=== PATIENT | male | born 1970 | race Caucasian/White ===

== ENCOUNTER → 2016-04-24 | Outpatient (CLI) | payer OTHER | LOC: FIMAGING 11:07 | PROVIDERS: ATTEND Neurological Surgery | PROC: CP1 Nuclear Medicine, Musculoskeletal System, Planar Nuclear Medicine Imaging (ICD-10-PCS; principal; 2016-04-24) | DX: M16.12 Unilateral primary osteoarthritis, left hip (principal) | CPT/HCPCS: 78300; A9503 ==

== ENCOUNTER → 2016-04-26 | Outpatient (CLI) | payer OTHER | LOC: FIMAGING 15:28 | PROVIDERS: ATTEND Physician Assistant Surgical | DX: Z98.890 Other specified postprocedural states (principal); Z98.1 Arthrodesis status; M16.12 Unilateral primary osteoarthritis, left hip ==

== ENCOUNTER 2016-08-29 10:35 | Inpatient (IN) | payer OTHER ==
[~2016-08-29 10:35] MED LIST: ACETAMINOPHEN 325 MG TAB PO ONE; DEXAMETHASONE 4 MG/ML VIAL IVP ONE; FAMOTIDINE 20 MG TAB PO ONE; POVIDONE-IODINE 20 ML in SODIUM CL IRRIG SOLUTION 500 ML IRR ONE; ROPIVACAINE 0.2% 80 MG, EPINEPHrine 0.2 MG, KETOROLAC TROMETHAMINE 30 MG in BAG 0 ML IU ONE; TRANEXAMIC ACID 2,000 MG in NS 100 ML IV ONE; ceFAZolin 1 GM/5 ML SYR ONE; ceFAZolin 2 GM/DEXTROSE 100 ML IV ONE
[2016-08-29] MEDS ORDERED: ACETAMINOPHEN 325 MG TAB ONE (11:09)
[2016-08-29] MEDS ORDERED: DEXAMETHASONE 4 MG/ML VIAL ONE (11:09)
--- NOTE | 2016-08-29 11:09 | PDHPUP ---
History & Physical Update H&P update statement: This history and physical update is based on an assessment of the patient which was completed after admission or registration (within 24 hours), but prior to the surgery/procedure. H&P update: H&P reviewed & patient examined, no change in patient's condition since H&P completed
[2016-08-29] MEDS ORDERED: CEFAZOLIN 2 GM/DEXTROSE/100 ML BAG IV ONE (11:10)
[2016-08-29] MEDS ORDERED: FAMOTIDINE 20 MG TAB ONE (11:10)
[2016-08-29] MEDS ORDERED: MIDAZOLAM 2 MG/2 ML VIAL IVP ONE (11:25)
--- NOTE | 2016-08-29 11:27 | PDANEPAE ---
ANE Past Medical History - Cardiovascular History Hx Hypertension: No Hx Arrhythmias: No Hx Chest Pain: No Hx Coronary Artery / Peripheral Vascular Disease: No Hx CHF / Valvular Disease: No Hx Palpitations: No Cardiovascular History Comment: borderline htn- no medications - Pulmonary History Hx COPD: No Hx Asthma/Reactive Airway Disease: No Hx Recent Upper Respiratory Infection: No Hx Oxygen in Use at Home: No Hx Sleep Apnea: No Sleep Apnea Screening Result - Last Documented: Negative - Neurologic History Hx Cerebrovascular Accident: No Hx Seizures: No Hx Dementia: No Neurologic History Comment: hx of back fusion last year - Endocrine History Hx Diabetes: No Hypothyroid: No Hyperthyroid: No Obesity: no - Renal History Hx Renal Disorders: No - Liver History Hx Hepatic Disorders: No - Neurological & Psychiatric Hx Hx Neurological and Psychiatric Disorders: Yes Neurological / Psychiatric History Comment: 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 l4-5 fusion back surgery x2 2016 ANE Review of Systems - Exercise capacity METS (RN): 4 METS - Systems Muscolosketal: Reports: back pain, joint pain Neurological: Reports: paresthesia ANE Patient History - Allergies Allergies/Adverse Reactions: No Known Allergies Allergy (Unverified 08/17/16 11:42) - Home Medications Home Medications: NK [No Known Home Meds] 08/17/16 [Last Taken Unknown] - NPO status NPO Since - Liquids (Date): 08/29/16 NPO Since - Liquids (Time): 09:00 NPO Since - Solids (Date): 08/28/16 NPO Since - Solids (Time): 00:00 - Anes Hx Anes Hx: no prior problems - Smoking Hx Smoking Status: Former smoker - Alcohol Use Alcohol Use: Occasionally - Family Anes Hx Family Anes Hx: neg - N/A Family Hx Anesthesia Complications: none ANE Labs/Vital Signs - Vital Signs Blood Pressure: 173/105 Heart Rate: 76 Respiratory Rate: 16 O2 Sat (%): 96 Height: 180.34 cm Weight: 104.326 kg ANE Physical Exam - Airway Neck exam: FROM Mallampati Score: Class 2 Mouth exam: normal dental/mouth exam - Pulmonary Pulmonary: no respiratory distress, no rales or rhonchi, clear to auscultation - Cardiovascular Cardiovascular: regular rate and rhythym - ASA Status ASA Status: II ANE Anesthesia Plan Anesthesia Plan: MAC, spinal
[2016-08-29] MEDS ORDERED: fentaNYL 100 MCG/2 ML INJ ONE (11:50)
[2016-08-29] MEDS ORDERED: PROPOFOL/EMULSION 500 MG/50 ML BOTTLE IV ONE ×2 (11:52→13:05)
[2016-08-29] MEDS ORDERED: LIDOCAINE 2% 5 ML SDV ONE ×2 (11:55)
[2016-08-29] MEDS ORDERED: NALOXONE HCL 0.4 MG/ML INJ IVP PRN (12:37)
[2016-08-29] MEDS ORDERED: HYDROCODONE/APAP 5/325 TAB PO PRN (12:37)
[2016-08-29] MEDS ORDERED: ACETAMINOPHEN 500 MG TAB PO PRN (12:37)
[2016-08-29] MEDS ORDERED: D5W LR 500 ML IV PRN (12:37)
[2016-08-29] MEDS ORDERED: ONDANSETRON 4 MG/2 ML VIAL IVP PRN ×2 (12:37→14:23)
[2016-08-29] MEDS ORDERED: REMIFENTANIL HCL 1 MG VIAL ONE (13:29)
[2016-08-29] MEDS ORDERED: PROPOFOL 200 MG/20 ML VIAL ONE (13:32)
[2016-08-29] MEDS ORDERED: KETOROLAC 30 MG/1 ML SDV ONE (14:01)
--- NOTE | 2016-08-29 14:13 | POSTOPPROG ---
Post Op Note Date of Operation: 08/29/16 Surgeon: Vj Moctezuma Service Inspector: Tone Greene/Sidney Ross Anesthesiologist: Edwardo Mota Anesthesia: IV Sedation, Spinal Post-op Diagnosis: Left hip severe degenerative arthritis. Procedure: Left total hip arthroplasty Inf/Abcess present in the surg proc area at time of surgery?: No EBL: 100-500
[2016-08-29] MEDS ORDERED: PROMETHAZINE HCL 25 MG/ML INJ IVP PRN (14:23)
[2016-08-29] MEDS ORDERED: BISACODYL 10 MG SUPP PR PRN (14:23)
[2016-08-29] MEDS ORDERED: ONDANSETRON DISINTEGRATING 4 MG TAB PO PRN (14:23)
[2016-08-29] MEDS ORDERED: CYCLOBENZAPRINE 10 MG TAB PO PRN (14:23)
[2016-08-29] MEDS ORDERED: NS 500 ML IV PRN (14:23)
[2016-08-29] MEDS ORDERED: POLYETHYLENE GLYCOL 3350 17 GM PKT PO PRN (14:23)
[2016-08-29] MEDS ORDERED: TEMAZEPAM 15 MG CAP PO PRN (14:23)
[2016-08-29] MEDS ORDERED: PHARMACY PAIN CONSULT 1 EA MISC PRN (14:23)
[2016-08-29] MEDS ORDERED: METOCLOPRAMIDE 10 MG/2 ML VIAL IVP PRN (14:23)
[2016-08-29] MEDS ORDERED: MAGNESIUM HYDROXIDE 30 ML UDCUP PO PRN (14:23)
[2016-08-29] MEDS ORDERED: PROMETHAZINE HCL 25 MG SUPPR PR PRN (14:23)
[2016-08-29] MEDS ORDERED: DIPHENOXYLATE/ATROPINE LOMOTIL 1 TAB PO PRN (14:23)
[2016-08-29] MEDS ORDERED: traMADol 50 MG TAB PO PRN (14:23)
[2016-08-29] MEDS ORDERED: diphenhydrAMINE 25 MG CAP PO PRN (14:23)
[2016-08-29] MEDS ORDERED: LACTULOSE 20 GM/30 ML UDCUP PO PRN (14:23)
[2016-08-29] MEDS ORDERED: LR 1,000 ML IV SCH (14:30)
--- NOTE | 2016-08-29 14:44 | POSTANESTH ---
Post Anesthetic Evaluation Cardiovascular Status: Normal, Stable Respiratory Status: Normal, Stable Level of Consciousness/Mental Status: Can Participate in Eval Pain Control: Adequate, Prn Tx Ordered Nausea/Vomiting Control: Adequate, Prn Tx Ordered Complications Possibly Related to Anesthesia: None Noted
--- NOTE | 2016-08-29 15:18 | GOP ---
[f rep st] OPERATIVE REPORT DATE OF OPERATION: 08/29/2016 SURGEON: Vj Moctezuma MD DAIRY MACHINE OPERATOR FARMWORKER: Tone Greene and Sidney Ross. ANESTHESIA: A combination of Marcaine, spinal, and IV sedation. ANESTHESIOLOGIST: Dr. Edwardo Mota. PREOPERATIVE DIAGNOSIS: Left hip severe degenerative arthritis. POSTOPERATIVE DIAGNOSIS: Left hip severe degenerative arthritis. PROCEDURE PERFORMED: Left total hip arthroplasty, Oxinium femoral head on highly cross-linked polye thylene cup liner. FINDINGS: ESTIMATED BLOOD LOSS: About 500 mL. COUNTS: The sponge and needle count were correct on 2 occasions. I used a [employer]hew R3 hemispherical solid-backed acetabular shell with an outside diameter of 56 mm. The liner was a [employer]don [employer]hew R3 0 degree highly cross-linked liner with an inside diame ter of 36 mm. The femoral component was a standard offset Ardon [employer] Nephew Synergy stem in a size 1 5 and press-fit. The femoral head was a [employer] Nephew Oxinium head with a 0 neck length and a 36 mm outside diameter. Tone Greene and Sidney Ross acted as surgical assistants. Their assistance was a medical nain mix in order to carry out the procedure safely. DESCRIPTION OF PROCEDURE: The patient was given 2 g of IV Ancef preoperatively within 60 minutes of surgery. He also received IV tranexamic acid at a dose of 20 mg/kg. He was placed on the operatin g room table and given spinal anesthesia with Marcaine by Dr. Mota. He was then placed supin e and given IV sedation. A Fuller catheter was not used. A TOM stocking and SCD were placed on his nonoperative leg. He was rolled to the right lateral decubitus position. The position was secured with the pegboard table attachment. An axillary roll was used, and all pressure points were careful ly padded. I was careful to lock his pelvis in a vertical position. His perineum was isolated with plastic adhesive drapes. The left hip and left lower extremity were prepped with ChloraPrep. They were draped free using sterile sheets, stockinette, and Ioban plastic drapes. The [employer] anization time-out was performed to verify the correct surgical side and the correct patient identit y. The Moffat time-out was also performed. I made a 5-inch straight oblique posterolateral hip skin incision. Subcutaneous tissues were sharpl y divided and hemostasis was obtained using electrocautery. The fascia evan was identified and spli t along the axis of its fibers. I then curved posteriorly and proximally, and split the fascia of t he gluteus krystle and bluntly split the muscle fibers in line with their orientation. The Charnley self-retaining retractor was inserted. His sciatic nerve was located, partially exposed, and prote cted throughout the procedure. The external rotators and the posterior hip capsule were divided as separate layers at the base of the femoral neck, tagged, and reflected posteriorly. A smooth 8-inch Steinmann pin was inserted vertically into the ilium superior to the acetabulum. A 1/8-inch drill bit was inserted vertically into the greater trochanter and parallel to the first pin. The distance between the 2 was measured for leg length reference. His femoral head was dislocated posteriorly. Severe degenerative changes were present on the femoral head. His femoral neck was osteotomized at the appropriate level and inclination. I was careful to preserve all the posterior capsule and mos t of the anterior capsule. The remnant of his damaged labrum was excised. The femur was prepared first. This allowed me to route specialist the amount of natural femoral neck anteversi on. This, in turn, allowed me to later determine the correct amount of cup anteversion. He had ricki roximately 15 degrees of natural femoral neck anteversion. The canal was opened laterally with a jaime x chisel. I reamed and broached sequentially up to size 15. I used a size 15 broach as a trial dannielle m. I was careful to lateralize adequately. Appropriate retractors were inserted to expose the acet abulum. The acetabulum was reamed sequentially to 55 mm. I selected a 56 mm Ardon and Nephew R3 so lid backed hemispherical shell. This was tapped securely into place in the proper degree of inclina tion anteversion. I used the remnant of his transverse acetabular ligament and other acetabular bon y landmarks to help me properly orient the cup. Supplemental screw fixation was not necessary. I i nserted a screw-in metal dome hole plug. He had large posterior inferior osteophytes, which I remov ed with an osteotome and rongeur. He also had very large anterior inferior acetabular osteophytes, which were similarly removed. I performed a series of trial reductions to determine length and stability. I took an intraoperativ e cross-table AP x-ray to help me route specialist leg length. I concluded that the size 15 stem with a 0 neck length, a 36 mm head and a 0 degree trial liner, gave me the proper combination of appropriate claudio th and good anterior and posterior stability. Based on the intraoperative film, I did use the later alizing reamer to make sure the stem was inserted without any varus. The 0 degree Ardon [employer] Nephew R3 highly cross-linked polyethylene liner was inserted and tapped secu rely into place. The Ardon [employer] Nephew Synergy stem in size 15 with standard offset was inserted pre ss-fit and was very tight. I did one final trial reduction and confirmed that the 0 neck length wit h a 36 mm head was the proper combination. The Ardon [employer] Nephew Oxinium head with an outside diamet er of 36 mm and a neck length of 0 mm was tapped securely onto the clean trunnion. The acetabulum w as irrigated, cleaned, and the hip was reduced one final time. He had excellent anterior and seismograph operator ior stability and appropriate length. 40 mL of the joint anesthetic cocktail was injected into the capsule, the deep musculature, and the subcutaneous tissues around the skin edges. The joint was thoroughly irrigated one final time with a dilute Betadine solution. His sciatic nerve was reinspected and looked unharmed. The external ro tators and the posterior hip capsule were repaired in separate layers with #2 FiberWire sutures thro ugh drill holes in the greater trochanter. This provided a strong posterior capsular and external r otator repair. The fascia evan was closed first with several [id number] #2 FiberWire sutures f ollowed by a running #2 barbed Ethicon Stratafix PDO suture. The subcutaneous tissues were closed w ith a running 0 barbed Ethicon Stratafix Monoderm suture. The skin was closed with a running 3-0 ba rbed Ethicon Stratafix Monoderm subcuticular suture. The skin edges were reapproximated and sealed with Dermabond glue. The wound was covered with a strip of Telfa and everything was held in place w ith a piece of clear plastic Tegaderm. A long-leg TOM stocking and SCD were applied to his left low er extremity. He wore a stocking and SCD on the opposite leg during the procedure. An abduction pi llow was placed between his knees. He was awakened from anesthesia and rolled to the supine positio n on his [facility]. He was taken to the PACU in satisfactory condition. There were no recogn ized intraoperative complications. Copy requested to: DAMIR PENN /[id number]/MODL
[2016-08-29] MEDS: oxyCODONE IR 5 MG TAB PO PRN ×3 (15:51→20:45)
[2016-08-29] MEDS: KETOROLAC 30 MG/1 ML SDV IVP PRN ×2 (15:51→20:44)
[2016-08-29] MEDS: ACETAMINOPHEN 325 MG TAB PO SCH (17:41)
[2016-08-29] MEDS: SENNOSIDES/DOCUSATE SODIUM TAB PO SCH (20:07)
[2016-08-29] MEDS: FAMOTIDINE 20 MG TAB PO SCH (20:07)
[2016-08-29] MEDS: ceFAZolin 2 GM/DEXTROSE 100 ML IV SCH (20:08)
[2016-08-29] MEDS: ASPIRIN 325 MG TAB PO SCH (20:43)
[2016-08-29 23:28] VITALS: RESP 17
[2016-08-30] MEDS: ACETAMINOPHEN 325 MG TAB PO SCH ×2 (00:24→05:12)
[2016-08-30 04:52] VITALS: BP 121/81; TEMP 98.6; O2SAT 98
[2016-08-30] MEDS: oxyCODONE IR 5 MG TAB PO PRN ×3 (05:13→11:38)
[2016-08-30] MEDS: ceFAZolin 2 GM/DEXTROSE 100 ML IV SCH (05:14)
[2016-08-30 05:23] LABS: HEMATOCRIT 38.1 % (40.0-51.0)
[2016-08-30 08:15] VITALS: PULSE 62
[2016-08-30] MEDS: SENNOSIDES/DOCUSATE SODIUM TAB PO SCH (08:31)
[2016-08-30] MEDS: ASPIRIN 325 MG TAB PO SCH (08:31)
[2016-08-30] MEDS: FAMOTIDINE 20 MG TAB PO SCH (08:31)
[2016-08-30] MEDS ORDERED: FERROUS SULFATE 140 MG TAB.ER PO SCH (09:00)
--- NOTE | 2016-08-30 09:37 | SOAPPROG ---
SOAP Progress Note Assessment/Plan: Assessment: Afebrile. Awake and alert. He has been walking in the [place]. His dressing is dry. Sciatic nerve intact. H&H is good. His postoperative films look excellent. Plan: Physical therapy today and discharge later today. 08/30/16 09:36 Objective: Vital Signs Temp Pulse Resp BP Pulse Ox 37.0 C 62 17 121/81 H 98 08/30/16 04:00 08/30/16 08:00 08/30/16 08:00 08/30/16 04:00 08/30/16 08:00 Laboratory Results 08/30/16 04:46 08/29/16 08/30/16 08/31/16 05:59 05:59 05:59 Intake Total 4075 Output Total 350 Balance 3725 ICD10 Worksheet Patient Problems: Problems Problem Status Onset Osteoarthritis of left hip Acute
--- NOTE | 2016-08-30 15:01 | GDS ---
[f rep st] DISCHARGE SUMMARY ADMITTING DIAGNOSES: Left hip severe degenerative arthritis. DISCHARGE DIAGNOSIS: Left hip severe degenerative arthritis. OPERATIONS PERFORMED: On 08/29/2016, a left total hip arthroplasty. POSTOPERATIVE COMPLICATIONS: None. CONDITION ON DISCHARGE: Improved. DESCRIPTION OF HOSPITAL COURSE: The patient was admitted to the hospital on the morning of surgery. His hemoglobin, electrolytes and BUN and creatinine on June 07, 2016 were normal. The same day, under a combination of Marcaine, spinal anesthesia and IV sedation, he underwent a left total hip arthroplasty. Postoperatively, he was treated with multimodal DVT prophylaxis, including aspirin. On the first postoperative day, his hemoglobin and hematocrit were 13.0 and 38.1. He was seen by Physical Therapy and made excellent progress with ambulation and stairs. By the time of discharge, he was afebrile, his wound was clean and dry, and he was independent walking with a walker. DISPOSITION: The patient is discharged to his home. DISCHARGE INSTRUCTIONS: He will go to outpatient physical therapy in [place], [place]. Continue aspirin 325 mg p.o. daily for 21 days. He may progress to full weightbearing on the left as tolerated. Use an abduction pillow in bed for 3 weeks. Use TOM stockings for 1 week. He has prescriptions for oxycodone and tramadol for pain control. I will see him back in the office on September 18, 2016. If there are any problems, he is to call me at the office. Copy requested to: Dr. Gonzalo [place], [place] /[id number]/MODL MTDD
== END 2016-08-30 11:44 | disposition home or self-care (01) | DRG 470 ==
LOC: F3N 10:35
PROVIDERS: ADMIT Orthopaedic Surgery; ATTEND Orthopaedic Surgery
PROC: 0SRB02A Replacement of Left Hip Joint with Metal on Polyethylene Synthetic Substitute, Uncemented, Open Approach (ICD-10-PCS; principal; 2016-08-29 12:00)
DX: M16.12 Unilateral primary osteoarthritis, left hip (principal); M54.9 Dorsalgia, unspecified; Z87.891 Personal history of nicotine dependence; Z98.1 Arthrodesis status
CPT/HCPCS: 97161-GP; 97165-GO; J0171; J0690; J1100; J1885; J2250; J2704; J2795; J3010

== ENCOUNTER 2016-12-19 07:15 | Inpatient (IN) | payer OTHER ==
[~2016-12-19 07:15] MED LIST changes: -ACETAMINOPHEN 325 MG TAB PO ONE; -DEXAMETHASONE 4 MG/ML VIAL IVP ONE; -FAMOTIDINE 20 MG TAB PO ONE; -POVIDONE-IODINE 20 ML in SODIUM CL IRRIG SOLUTION 500 ML IRR ONE; -ROPIVACAINE 0.2% 80 MG, EPINEPHrine 0.2 MG, KETOROLAC TROMETHAMINE 30 MG in BAG 0 ML IU ONE; +TRANEXAMIC ACID 1,000 MG in NS 100 ML IV ONE; -TRANEXAMIC ACID 2,000 MG in NS 100 ML IV ONE; -ceFAZolin 1 GM/5 ML SYR ONE; -ceFAZolin 2 GM/DEXTROSE 100 ML IV ONE
[2016-12-19] MEDS ORDERED: CHLORHEXIDINE GLUC HIBICLENS 118 ML BTL TP ONE (08:05)
[2016-12-19] MEDS ORDERED: THROMBIN (BOVINE) 20,000 UNIT VIAL TP ONE ×4 (08:05→14:32)
[2016-12-19] MEDS ORDERED: BUPIVACAINE 0.25% 30 ML SDV ONE (08:06)
[2016-12-19] MEDS ORDERED: BACITRACIN 50,000 UNITS/10 ML SYR IRR ONE ×5 (08:06→14:32)
[2016-12-19] MEDS ORDERED: GABAPENTIN 300 MG CAP PO ONE (08:36)
[2016-12-19] MEDS ORDERED: ceFAZolin 2 GM/SWFI 2 GM/20 ML SYR IVP ONE (08:36)
[2016-12-19] MEDS ORDERED: morphINE PF 5 MG/10 ML INJ IT ONE (08:36)
[2016-12-19] MEDS ORDERED: ACETAMINOPHEN 500 MG TAB PO ONE (08:36)
[2016-12-19] MEDS ORDERED: fentaNYL 100 MCG/2 ML INJ IT ONE (08:36)
[2016-12-19] MEDS ORDERED: LR 1,000 ML IV ONE (08:37)
[2016-12-19] MEDS ORDERED: LIDOCAINE 1% 2 ML INJ ID PRN (08:37)
--- NOTE | 2016-12-19 09:16 | PDANEPAE ---
ANE History of Present Illness Lumbar stenosis S/P Fusion Plan TLIF removal hardware ANE Past Medical History - Cardiovascular History Hx Hypertension: No Hx Arrhythmias: No Hx Chest Pain: No Hx Coronary Artery / Peripheral Vascular Disease: No Hx CHF / Valvular Disease: No Hx Palpitations: No Cardiovascular History Comment: borderline htn- no medications - Pulmonary History Hx COPD: No Hx Asthma/Reactive Airway Disease: No Hx Recent Upper Respiratory Infection: No Hx Oxygen in Use at Home: No Hx Sleep Apnea: No Sleep Apnea Screening Result - Last Documented: Negative - Neurologic History Hx Cerebrovascular Accident: No Hx Seizures: No Hx Dementia: No Neurologic History Comment: hx of back fusion last year - Endocrine History Hx Diabetes: No Hypothyroid: No Hyperthyroid: No Obesity: moderate - Renal History Hx Renal Disorders: No - Liver History Hx Hepatic Disorders: No - Neurological & Psychiatric Hx Hx Neurological and Psychiatric Disorders: Yes Neurological / Psychiatric History Comment: 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 Low back pain,radiating down L thigh and back of calf. - Cancer History Hx Cancer: No Cancer History Comment: throat lesions removed 8 yrs ago - Congenital Disorder History Hx Congenital Disorders: No - GI History Hx Gastrointestinal Disorders: No - Other Health History Other Health History: dry skin - Chronic Pain History Chronic Pain: Yes (back and left leg) - Surgical History Prior Surgeries: L total hip 08-29-16. left index finger surgery x2 2014. l4- 5 fusion back surgery x2 2016 ANE Review of Systems Review of Systems: - Exercise capacity METS (RN): 4 METS ANE Patient History - Allergies Allergies/Adverse Reactions: No Known Allergies Allergy (Verified 12/05/16 13:51) - Home Medications Home Medications: NK [No Known Home Meds] 12/05/16 [Last Taken Unknown] - NPO status NPO Since - Liquids (Date): 12/19/16 NPO Since - Liquids (Time): 00:00 NPO Since - Solids (Date): 12/18/16 NPO Since - Solids (Time): 00:00 - Smoking Hx Smoking Status: Former smoker - Family Anes Hx Family Hx Anesthesia Complications: none ANE Labs/Vital Signs - Vital Signs Blood Pressure: 150/95 Heart Rate: 88 Respiratory Rate: 16 O2 Sat (%): 95 Height: 180.34 cm Weight: 117.934 kg ANE Physical Exam - Airway Mallampati Score: Class 2 Mouth exam: normal dental/mouth exam - Pulmonary Pulmonary: no respiratory distress, no rales or rhonchi - Cardiovascular Cardiovascular: regular rate and rhythym, no murmur, rub, or gallop - ASA Status ASA Status: II ANE Anesthesia Plan Anesthesia Plan: general endotracheal anesthesia
[2016-12-19] MEDS ORDERED: MIDAZOLAM 2 MG/2 ML VIAL IVP ONE (09:19)
[2016-12-19] MEDS ORDERED: PROPOFOL/EMULSION 500 MG/50 ML BOTTLE IV ONE ×4 (09:25→14:52)
[2016-12-19] MEDS ORDERED: ROCURONIUM 50 MG/5 ML VIAL ONE (09:27)
[2016-12-19] MEDS ORDERED: GLYCOPYRROLATE 0.2 MG/1 ML VIAL ONE (09:30)
[2016-12-19] MEDS ORDERED: LIDOCAINE 2% 5 ML SDV ONE (09:34)
--- NOTE | 2016-12-19 10:02 | PDHPUP ---
History & Physical Update H&P update statement: This history and physical update is based on an assessment of the patient which was completed after admission or registration (within 24 hours), but prior to the surgery/procedure. H&P update: no change in patient's condition since H&P completed
[2016-12-19] MEDS ORDERED: CITRATE DEXTROSE SOLN 500 ML BAG ONE ×2 (10:06→13:32)
[2016-12-19] MEDS ORDERED: fentaNYL 100 MCG/2 ML INJ ONE ×9 (10:09→14:52)
[2016-12-19] MEDS ORDERED: PROPOFOL 200 MG/20 ML VIAL ONE ×2 (10:40)
[2016-12-19] MEDS ORDERED: HYDROmorphONE/DILAUDID 2 MG/ML INJ ONE ×2 (13:31→14:52)
[2016-12-19] MEDS ORDERED: ceFAZolin 1 GM VIAL ONE (13:49)
[2016-12-19] MEDS ORDERED: PETROLAT,WHT/MIN OIL/SOD CHL 3.5 GM OPHT.OINT ONE (13:50)
[2016-12-19] MEDS ORDERED: morphINE PF 5 MG/10 ML INJ ONE (14:44)
[2016-12-19] MEDS ORDERED: LABETALOL HCL 5 MG/ML 20 ML MDV ONE (15:09)
[2016-12-19] MEDS ORDERED: ONDANSETRON 4 MG/2 ML VIAL ONE ×2 (15:10)
[2016-12-19] MEDS ORDERED: ONDANSETRON 4 MG/2 ML VIAL IVP PRN ×2 (15:27→15:58)
[2016-12-19] MEDS ORDERED: fentaNYL 100 MCG/2 ML INJ IVP PRN (15:27)
[2016-12-19] MEDS ORDERED: HYDROmorphONE/DILAUDID 1 MG/ML INJ IVP PRN (15:27)
[2016-12-19] MEDS ORDERED: MEPERIDINE 25 MG/ML SYR IVP PRN (15:27)
[2016-12-19] MEDS ORDERED: PROMETHAZINE HCL 25 MG/ML INJ IVP PRN (15:27)
[2016-12-19] MEDS ORDERED: NALOXONE HCL 0.4 MG/ML INJ IVP PRN (15:27)
[2016-12-19] MEDS ORDERED: LABETALOL HCL 50 MG/10 ML SYR IVP PRN (15:27)
[2016-12-19] MEDS ORDERED: TRANEXAMIC ACID 1,000 MG in NS 100 ML IV ONE ×2 (15:33→15:45)
[2016-12-19] MEDS ORDERED: BISACODYL 10 MG SUPP PR PRN (15:58)
[2016-12-19] MEDS ORDERED: MAGNESIUM HYDROXIDE 30 ML UDCUP PO PRN (15:58)
[2016-12-19] MEDS ORDERED: LACTULOSE 20 GM/30 ML UDCUP PO PRN ×2 (15:58→16:01)
[2016-12-19] MEDS ORDERED: ONDANSETRON DISINTEGRATING 4 MG TAB PO PRN ×2 (15:58→16:01)
[2016-12-19] MEDS ORDERED: diphenhydrAMINE 25 MG CAP PO PRN ×2 (15:58→16:01)
[2016-12-19] MEDS ORDERED: HYDROmorphONE/DILAUDID 6 MG/30 ML PCA IV PRN (16:01)
[2016-12-19] MEDS ORDERED: NS W/ 20 KCl/L 1,000 ML IV SCH (16:15)
--- NOTE | 2016-12-19 16:17 | SOAPPROG ---
SOAP Progress Note Assessment/Plan: POST OP CHECK; Assessment: doing well s/p L3-S1 fusion with L3/4 and L4/5 TLIFs Plan: CPM in PACU Continue ENRIQUE to bulb suction transfer to floor per protocol 12/19/16 16:12 Subjective: sleeping, wakes to voice and follows commands. comfortable Objective: Vital Signs Temp Pulse Resp BP Pulse Ox 37.0 C 88 16 150/95 H 95 12/19/16 08:39 12/19/16 09:19 12/19/16 09:19 12/19/16 09:19 12/19/16 09:19 Vitals: BP : 104/77 HR: 97 02: 97% Face mask Neuro: A+Ox 4 WOODALL spontaneously follows commands x 4 5/5 bilateral PF/EHL, DF flexes knees bilaterally equal lecturer in marketing and bilateral arm strength 5/5 sensation = LT throughout ICD10 Worksheet Patient Problems: Problems Problem Status Onset Osteoarthritis of left hip Acute
--- NOTE | 2016-12-19 16:19 | POSTOPPROG ---
Post Op Note Date of Operation: 12/19/16 Surgeon: Troy Parker Quirk Sander: WILTON Tyler Anesthesiologist: Marry Aguila Anesthesia: GET(General Endotracheal) Pre-op Diagnosis: L3/4, 4/5 DJD/ loose hardware L5/S1 Post-op Diagnosis: same Indication: severe left leg and back pain Procedure: L4-S1 hardware removal. L3/4,4/5 TLIF. L3-S1 fusion Findings: severe stenosis Inf/Abcess present in the surg proc area at time of surgery?: No EBL: Greater than 1000 Complications: none Drains: Prabhu Benson (to bulb suction)
[2016-12-19] MEDS: ceFAZolin 2 GM/DEXTROSE 100 ML IV SCH (17:57)
[2016-12-19] MEDS ORDERED: ceFAZolin 2 GM/SWFI 2 GM/20 ML SYR IVP SCH (19:00)
[2016-12-19] MEDS: oxyCODONE IR 5 MG TAB PO PRN (19:57)
[2016-12-19] MEDS ORDERED: ceFAZolin 2 GM/DEXTROSE 100 ML IV SCH (22:00)
[2016-12-19] MEDS: GABAPENTIN 300 MG CAP PO SCH (22:04)
[2016-12-19] MEDS: FAMOTIDINE 20 MG TAB PO SCH (22:04)
[2016-12-19] MEDS: morphINE SR 15 MG TAB PO SCH (22:05)
[2016-12-19] MEDS: ACETAMINOPHEN 500 MG TAB PO SCH (22:05)
[2016-12-19] MEDS: SENNOSIDES/DOCUSATE SODIUM TAB PO SCH ×2 (22:06→22:08)
--- NOTE | 2016-12-20 00:14 | GOP ---
[f rep st] OPERATIVE REPORT DATE OF OPERATION: 12/19/2016 SURGEON: Troy Parker MD ROTARY BAR OPERATOR: WILTON Cornell ANESTHESIA: General endotracheal. PREOPERATIVE DIAGNOSIS: Intractable back pain and left lower extremity radiculopathy secondary to severe spinal stenosis and lateral recess impingement at L3-4 and L4-5, status post prior L4 through S1 decompression and instrumentation and fusion with hardware failure and loose screws. Failed conservative care. Morbid obesity. High risk surgical candidate given comorbidities including morbid obesity and prior history of surgery. POSTOPERATIVE DIAGNOSIS: Intractable back pain and left lower extremity radiculopathy secondary to severe spinal stenosis and lateral recess impingement at L3-4 and L4-5, status post prior L4 through S1 decompression and instrumentation and fusion with hardware failure and loose screws. Failed conservative care. Morbid obesity. High risk surgical candidate given comorbidities including morbid obesity and prior history of surgery. PROCEDURE PERFORMED: 1. Removal of posterior segmental (pedicle screw) fixation at L4 through S1 with exploration of spinal fusion, and redo left-sided L4-5 posterior hemilaminectomy, medial facetectomy, and foraminotomy at L4-5 and L5-S1. 2. Left-sided L3-4 far lateral transpedicular decompression with L3 through S1 posterior segmental (pedicle screw) fixation and posterolateral fusion with local autograft and bone morphogenic protein. 3. L3-4 and L4-5 posterior/transforaminal lumbar interbody fusion with 2 structural PEEK interbody spacers, local autograft, and bone morphogenic protein. 4. Use of intraoperative microscopy, fluoroscopy, and computer volumetric stereotactic navigation with intraoperative neurophysiologic testing. 5. Injection of intrathecal narcotic analgesics and subcutaneous and intramuscular local anesthesia for postoperative pain control. FINDINGS: ESTIMATED BLOOD LOSS: 2 L. INDICATIONS: The patient is morbidly obese 46-year-old man, who underwent a prior multilevel decompression with stabilization and fusion at L4 through S1 with hardware failure and loose screws and a nonunion at L4-5 and adjacent level degeneration, spinal stenosis at L3-4. The patient has failed extensive conservative care and presents now for removal and replacement of hardware and revision of the fusion and interbody fusion instead of posterolateral fusion at L4-5 and extension of the decompression and fusion up to L3-4. The patient understands that there is no guarantee of a good outcome, and given his extensive surgical history and morbid obesity, it is likely a left complete pain relief, but hopefully will improve. DESCRIPTION OF PROCEDURE: After informed consent was obtained, patient was taken to the operating room and placed in a prone position on the Prabhu table. The thoracolumbosacral areas were prepped and draped in sterile fashion. After fluoroscopic localization of the correct levels, the subcutaneous and intramuscular tissues were infiltrated with local anesthesia. A midline linear incision was then created from approximately L3 through S1. This was carried down to the fascial layer, which was incised using monopolar electrocautery and carried in a subperiosteal plane along the spinous processes and out the lamina bilaterally. Intraoperative fluoroscopy was utilized to verify the correct levels. The dissection was carried out over the prior instrumentation which was carefully removed in a standard fashion. Note, that the exposure took much longer than normal and there was much more blood loss due to the patient's body habitus and depth of the incision and amount of bleeding. It was very difficult to get the proper angle from the screws due to the depth of the incision. It was also very difficult to verify the correct levels, due to his body habitus and the poor quality of the images as a result. I was able to confirm as best we could and after removal of the hardware, the microscope was brought in and redo posterior hemilaminectomy and foraminotomies and medial facetectomies were performed at L4-5 and L5-S1 with a new left-sided far lateral transpedicular decompression at the L3-4 level with complete unroofing of the facet joint and neural foramen. This was carried into the L3 foramen as well as the L4 foramen and down into the L5 level in order to ensure adequate decompression of all the roots on the left side. Following adequate decompression, the Gaosouyi neuronavigational system was brought in and using computer volumetric stereotactic navigation, pedicle screws were placed at L3, L4, L5 and S1 bilaterally. All screws were tested neurophysiologically with monopolar electrostimulation and interpretation of the potentials by the surgeon. Individual short rods were then placed first at L4-5, than at L3-4 with distraction across the interspaces and complete diskectomies performed at those levels with preparation of endplates and placement of 2 structural PEEK interbody spacers, local autograft and bone morphogenic protein at each level for L3-4 and L4-5 posterior/transforaminal lumbar interbody fusions. Again, this was extremely difficult due to the depth of the incision and the distance from skin. The normal instruments were not long enough, even the bariatric instruments were too short. This resulted in the surgery taking approximately twice as long as normal and about 4 or 5 times as much blood loss as normal. We were able to achieve excellent results with the interbody fusion material. The small rods were then removed, and longer rods extending from L3 to S1 replaced and secured with a slight amount of compression across the L3-4 and L4- 5 interspace in order to minimize the potential for posterior graft migration and to maximize the potential for interbody fusions with compression of the graft material. Following this, the wound was copiously irrigated with antibiotic irrigation. Meticulous hemostasis was achieved. After re- verification of good position of the screws, rods, and interbody spacers using biplanar fluoroscopy, 200 mcg of Duramorph were injected intrathecally. The remaining lamina and facet joints were extensively decorticated and the residual local autograft along with bone morphogenic protein and morselized allowgraft were utilized to perform a posterolateral fusion. Following this, a drain was placed. The subcutaneous and intramuscular tissues were re- infiltrated with local anesthesia and the wound was closed in a layered fashion using interrupted Vicryl sutures followed by Steri-Strips on the skin. COMPLICATIONS: None. DISPOSITION: The patient is currently in the process of being repositioned for extubation. /[id number]/MODL MTDD
[2016-12-20] MEDS: ceFAZolin 2 GM/DEXTROSE 100 ML IV SCH ×2 (03:03→08:22)
[2016-12-20 05:01] LABS: % IMMATURE GRANULYOCYTES 0.5 % (0.0-1.1); ABSOLUTE IMMATURE GRANULOCYTES 0.08 10^3/uL (0.00-0.10); ADD DIFF? NO; ADD MORPH? NO; ADD SCAN? NO; ATYPICAL LYMPHOCYTE FLAG 0 (0-99); FRAGMENT RBC FLAG 0 (0-99); HEMATOCRIT 39.4 % (40.0-51.0); HEMOGLOBIN 13.2 g/dL (13.7-17.5); LEFT SHIFT FLG 0 (0-99); LIPEMIA HEMOLYSIS FLAG 80 (0-99); MEAN CELL HEMOGLOBIN 29.1 pg (27.9-34.1); MEAN CELL HEMOGLOBIN CONCENTR. 33.5 g/dL (32.4-36.7); MEAN CELL VOLUME 86.8 fL (81.5-99.8); MEAN PLATELET VOLUME 9.2 fL (8.7-11.7); PLATELET CLUMPS FLAG 0 (0-99); PLATELET COUNT 162 10^3/uL (150-400); RED BLOOD CELL COUNT 4.54 10^6/uL (4.40-6.38); RED CELL DISTRIBUTION WIDTH 14.2 % (11.5-15.2)
[2016-12-20 05:30] LABS: ANION GAP 7 mEq/L (8-16); CALCIUM 7.9 mg/dL (8.5-10.4); CARBON DIOXIDE 26 mEq/l (22-31); CHLORIDE 103 mEq/L (97-110); CREATININE 1.1 mg/dL (0.7-1.3); GLOMERULAR FILTRATION RATE > 60; GLUCOSE 124 mg/dL (70-100); POTASSIUM 5.3 mEq/L (3.5-5.2); SODIUM 136 mEq/L (134-144)
[2016-12-20] MEDS: GABAPENTIN 300 MG CAP PO SCH ×3 (06:06→22:31)
[2016-12-20] MEDS: ACETAMINOPHEN 500 MG TAB PO SCH ×3 (06:06→22:31)
[2016-12-20] MEDS: ENOXAPARIN 40 MG/0.4 ML SYR SC SCH (08:10)
[2016-12-20] MEDS: METHOCARBAMOL 750 MG TAB PO PRN ×3 (08:10→22:31)
[2016-12-20] MEDS: morphINE SR 15 MG TAB PO SCH ×2 (08:10→20:51)
[2016-12-20] MEDS: POLYETHYLENE GLYCOL 3350 17 GM PKT PO PRN (08:10)
[2016-12-20] MEDS: SENNOSIDES/DOCUSATE SODIUM TAB PO SCH ×3 (08:10→20:51)
[2016-12-20] MEDS: FAMOTIDINE 20 MG TAB PO SCH ×2 (08:10→20:51)
[2016-12-20] MEDS: oxyCODONE IR 5 MG TAB PO PRN ×2 (08:22→20:52)
--- NOTE | 2016-12-20 08:36 | SOAPPROG ---
SOAP Progress Note Assessment/Plan: Assessment: POD #1. doing well s/p L3-S1 fusion with L3/4 and L4/5 TLIFs pain controlled ENRIQUE productive Plan: PT/OT. LSO when OOB xrays today continue ENRIQUE drain Subjective: awake, alert, pain well controlled overnight and this AM. can't be sure if his left leg pain is better this AM, but he thinks it might be. Denies any new neuro changes. Objective: Vital Signs Temp Pulse Resp BP Pulse Ox 36.6 C 76 16 109/56 L 91 L 12/20/16 07:23 12/20/16 07:23 12/20/16 07:23 12/20/16 07:23 12/20/16 07:23 Laboratory Results 12/20/16 04:25 12/20/16 04:25 12/19/16 12/20/16 12/21/16 05:59 05:59 05:59 Intake Total 3513 Output Total 7145 1725 Balance -42 -1725 Neuro: WOODALL, Sens +LT follows commands Dressing: Dry ENRIQUE: 100ml overnight ICD10 Worksheet Patient Problems: Problems Problem Status Onset Osteoarthritis of left hip Acute
--- NOTE | 2016-12-20 12:08 | ASMTCMCOM ---
CM Note CM Note Notes: 12/20/2016 Case Management Note Attempted to meet with patient twice, unable d/t pt fatigue. Reviewed chart. Daughter Dena involved in cares. No case management d/c needs identified at this time d/t pt age and family support. PT recommending home. Case management d/c poc: anticipating home with family support when medically stable with follow up as directed. Case management available if needs change. Date Signed: 12/20/2016 12:08 PM Electronically Signed By:Cathie Lynch RN
[2016-12-21] MEDS: oxyCODONE IR 5 MG TAB PO PRN ×2 (02:10→14:29)
[2016-12-21] MEDS: ACETAMINOPHEN 500 MG TAB PO SCH ×3 (06:24→21:01)
[2016-12-21] MEDS: GABAPENTIN 300 MG CAP PO SCH ×3 (06:24→21:01)
[2016-12-21] MEDS: METHOCARBAMOL 750 MG TAB PO PRN (06:24)
--- NOTE | 2016-12-21 08:06 | NEUSURGPN ---
Date of Surgery: 12/19/16 Post Op Day: 2 Assessment/Plan: POD #2 doing well-leg pain improved s/p L3-S1 fusion with L3/4 and L4/5 TLIFs Plan: PT/OT LSO when OOB H/H stable yesterday post op xrays show stable hardware placement continue ENRIQUE drain-250ml output last night pain management Discussed with Dr Baltazar Subjective: Patient is hungry and hurting with incisional pain Objective: AxO x3 PERRLA EOMI 5/5 BUE, BLE Sensation intact to light touch BLE Dressing CDI, ENRIQUE patent Neuro Check Frequency: per routine Urinary Catheter in Place: No Catheter Insertion Date: 12/19/16 - Physician Discussed Patient with DrReed: Elena Neurosurgery Physical Exam - Vitals, I&O, Labs I and O 12/20/16 12/21/16 12/22/16 05:59 05:59 05:59 Intake Total 3513 1700 Output Total 3555 6710 Balance -42 -5010 Weight 117.934 kg Intake: Oral (ml) 330 1700 IV Intake (ml) 3183 Output: Urine (ml) 1125 6200 Catheter 1125 1625 Urinal 4575 Estimated Blood Loss (ml) 2000 ENRIQUE Drain Output (ml) 430 510 #1 Back Prabhu Benson 430 510 Other: Intake Quantity Yes Sufficient Number of Voids Catheter 1 Urinal 1 Vital Signs Temp Pulse Resp BP Pulse Ox 36.7 C 68 18 117/75 96 12/20/16 23:28 12/20/16 23:28 12/20/16 23:28 12/20/16 23:28 12/20/16 23:28 Laboratory Results 12/20/16 04:25 12/20/16 04:25 ICD10 Worksheet Patient Problems: Problems Problem Status Onset Osteoarthritis of left hip Acute
[2016-12-21] MEDS: POLYETHYLENE GLYCOL 3350 17 GM PKT PO PRN (08:51)
[2016-12-21] MEDS: morphINE SR 15 MG TAB PO SCH ×2 (08:51→21:00)
[2016-12-21] MEDS: FAMOTIDINE 20 MG TAB PO SCH ×2 (08:51→21:01)
[2016-12-21] MEDS: ENOXAPARIN 40 MG/0.4 ML SYR SC SCH (08:52)
[2016-12-21] MEDS: SENNOSIDES/DOCUSATE SODIUM TAB PO SCH ×2 (10:14→21:00)
[2016-12-22] MEDS: oxyCODONE IR 5 MG TAB PO PRN ×4 (06:07→23:52)
[2016-12-22] MEDS: ACETAMINOPHEN 500 MG TAB PO SCH ×3 (06:07→21:35)
[2016-12-22] MEDS: GABAPENTIN 300 MG CAP PO SCH ×3 (06:08→21:35)
[2016-12-22] MEDS: METHOCARBAMOL 750 MG TAB PO PRN ×2 (06:09→23:52)
--- NOTE | 2016-12-22 07:41 | SOAPPROG ---
SOAP Progress Note Assessment/Plan: Assessment: POD #3. doing well s/p L3-S1 fusion with L3/4 and L4/5 TLIFs Patient apprears comfortable, but states his pain is 6/10 ENRIQUE remains productive Plan: PT/OT. LSO when OOB continue ENRIQUE drain DC Planning Subjective: lying in bed, comfortable but reports 6/10 pain States his left leg pain feels "better" Had BM yesterday Objective: Vital Signs Temp Pulse Resp BP Pulse Ox 36.9 C 66 16 138/75 H 96 12/22/16 07:31 12/22/16 07:31 12/22/16 07:31 12/22/16 07:31 12/22/16 07:31 Laboratory Results 12/20/16 04:25 12/20/16 04:25 12/21/16 12/22/16 12/23/16 05:59 05:59 05:59 Intake Total 1700 2250 500 Output Total 6710 2575 600 Balance -5010 -325 -100 Neuro: WOODALL, sens +LT ambulated around unit yesterday ENRIQUE: 275 ml ICD10 Worksheet Patient Problems: Problems Problem Status Onset Osteoarthritis of left hip Acute
[2016-12-22] MEDS: FAMOTIDINE 20 MG TAB PO SCH ×2 (09:11→21:36)
[2016-12-22] MEDS: morphINE SR 15 MG TAB PO SCH ×2 (09:12→21:35)
[2016-12-22] MEDS: ENOXAPARIN 40 MG/0.4 ML SYR SC SCH (09:13)
[2016-12-22] MEDS: POLYETHYLENE GLYCOL 3350 17 GM PKT PO PRN (09:16)
[2016-12-22] MEDS: SENNOSIDES/DOCUSATE SODIUM TAB PO SCH ×2 (10:24→21:36)
[2016-12-22] MEDS: DIAZEPAM 5 MG TAB PO PRN ×2 (13:55→21:35)
[2016-12-23] MEDS: GABAPENTIN 300 MG CAP PO SCH ×3 (05:08→21:34)
[2016-12-23] MEDS: ACETAMINOPHEN 500 MG TAB PO SCH ×3 (05:08→21:34)
[2016-12-23] MEDS: DIAZEPAM 5 MG TAB PO PRN ×2 (05:08→19:59)
[2016-12-23] MEDS: oxyCODONE IR 5 MG TAB PO PRN ×5 (05:08→22:58)
[2016-12-23] MEDS: morphINE SR 15 MG TAB PO SCH ×2 (08:12→20:00)
[2016-12-23] MEDS: METHOCARBAMOL 750 MG TAB PO PRN ×2 (08:12→21:34)
[2016-12-23] MEDS: FAMOTIDINE 20 MG TAB PO SCH ×2 (08:13→19:59)
[2016-12-23] MEDS: ENOXAPARIN 40 MG/0.4 ML SYR SC SCH (08:13)
[2016-12-23] MEDS: POLYETHYLENE GLYCOL 3350 17 GM PKT PO PRN (08:13)
[2016-12-23] MEDS: SENNOSIDES/DOCUSATE SODIUM TAB PO SCH ×2 (08:13→19:59)
--- NOTE | 2016-12-23 10:44 | SOAPPROG ---
SOAP Progress Note Assessment/Plan: Assessment: 46 yo M POD #4 L3-S1 fusion Plan: stable PT/OT LSO brace when out of bed scd/corinne/lovenox for DVT prophylaxis keep ENRIQUE for now hopefully dc home today or tomorrow please call with neuro changes discussed with Dr Bloom 12/23/16 10:42 Subjective: continued back pain, no leg pain, no weakness. Objective: Vital Signs Temp Pulse Resp BP Pulse Ox 37.5 C 95 16 128/77 H 90 L 12/23/16 08:00 12/23/16 08:00 12/23/16 08:00 12/23/16 08:00 12/23/16 08:00 Laboratory Results 12/20/16 04:25 12/20/16 04:25 12/22/16 12/23/16 12/24/16 05:59 05:59 05:59 Intake Total 2250 700 700 Output Total 2575 2050 Balance -325 -1350 700 AAOx4, +FC PERRL, EOMI, no facial droop FOX x4 + light touch C/D/I ICD10 Worksheet Patient Problems: Problems Problem Status Onset Osteoarthritis of left hip Acute
--- NOTE | 2016-12-23 10:54 | ASMTCMCOM ---
CM Note CM Note Notes: Per MD note, plan is DC today or tomorrow. Continue to anticipate no DC needs. Date Signed: 12/23/2016 10:53 AM Electronically Signed By:Cindy Coy LCSW
[2016-12-24] MEDS: oxyCODONE IR 5 MG TAB PO PRN ×2 (04:07→09:35)
[2016-12-24] MEDS: DIAZEPAM 5 MG TAB PO PRN ×2 (04:08→09:36)
[2016-12-24] MEDS: ACETAMINOPHEN 500 MG TAB PO SCH (04:08)
[2016-12-24] MEDS: GABAPENTIN 300 MG CAP PO SCH (04:08)
[2016-12-24] MEDS: SENNOSIDES/DOCUSATE SODIUM TAB PO SCH (07:31)
[2016-12-24] MEDS: morphINE SR 15 MG TAB PO SCH (07:32)
[2016-12-24] MEDS: FAMOTIDINE 20 MG TAB PO SCH (07:32)
[2016-12-24] MEDS: METHOCARBAMOL 750 MG TAB PO PRN (07:32)
[2016-12-24] MEDS: POLYETHYLENE GLYCOL 3350 17 GM PKT PO PRN (07:32)
[2016-12-24] MEDS: ENOXAPARIN 40 MG/0.4 ML SYR SC SCH (07:33)
[2016-12-24 07:38] VITALS: BP 120/73; PULSE 89; RESP 16; TEMP 98.2; O2SAT 95
--- NOTE | 2016-12-24 09:02 | SOAPPROG ---
SOAP Progress Note Assessment/Plan: Assessment: 46 yo M POD #5 L3-S1 fusion Plan: stable PT/OT LSO brace when out of bed scd/corinne/lovenox for DVT prophylaxis likely DC ENRIQUE prior to dc home today hopefully dc home today or tomorrow please call with neuro changes discussed with Dr Bloom 12/23/16 10:42 12/24/16 09:01 Subjective: continued back pain. no leg pain. No weakness. Objective: Vital Signs Temp Pulse Resp BP Pulse Ox 36.8 C 89 16 120/73 95 12/24/16 07:37 12/24/16 07:37 12/24/16 07:37 12/24/16 07:37 12/24/16 07:37 Laboratory Results 12/20/16 04:25 12/20/16 04:25 12/23/16 12/24/16 12/25/16 05:59 05:59 05:59 Intake Total 700 2500 Output Total 2050 1360 590 Balance -1350 1140 -590 AAOX4, +FC PERRL, EOMI, no facial droop 5/5 + light touch C/D/I ICD10 Worksheet Patient Problems: Problems Problem Status Onset Osteoarthritis of left hip Acute
--- NOTE | 2016-12-24 12:57 | ASDISCHSUM ---
Discharge Information Plan Status:Home with No Needs Medically Cleared to Leave: Discharge Date:12/24/2016 11:11 AM CM D/C Disposition:Home, Routine, Self-Care ADT D/C Disposition:Home, Routine, Self-Care Projected Discharge Date:12/24/2016 11:11 AM Transportation at D/C:Family Discharge Delay Reason: Follow-Up Date:12/24/2016 11:11 AM Discharge Slot: Final Diagnosis: Placement Information Patient Contact Information Contact Name:GERBER Relationship:Daughter Address: Work Phone: City: [facility] Phone: State/Zip Code: Email: Financial Information Financial Class:HMO and PPO Plans Primary Plan Desc:ADDY STRICKLAND Primary Plan Number:[id number] Secondary Plan Desc: Secondary Plan Number: Assessment Information [facility] CM Progress Note CM Note CM Note Notes: 12/20/2016 Case Management Note Attempted to meet with patient twice, unable d/t pt fatigue. Reviewed chart. Daughter Dena involved in cares. No case management d/c needs identified at this time d/t pt age and family support. PT recommending home. Case management d/c poc: anticipating home with family support when medically stable with follow up as directed. Case management available if needs change. Date Signed: 12/20/2016 12:08 PM Electronically Signed By:Cathie Lynch RN [facility] CM Progress Note CM Note CM Note Notes: Per note, plan is DC today or tomorrow. Continue to anticipate no DC needs. Date Signed: 12/23/2016 10:53 AM Electronically Signed By:Cinyd Coy LCSW Intervention Information
== END 2016-12-24 11:11 | disposition home or self-care (01) | DRG 460 ==
LOC: F3N 08:12
PROVIDERS: ADMIT Neurological Surgery; ATTEND Neurological Surgery
DX: M48.061 Spinal stenosis, lumbar region without neurogenic claudication (principal); T84.296A Other mechanical complication of internal fixation device of vertebrae, initial encounter; M51.36 Other intervertebral disc degeneration, lumbar region; M43.26 Fusion of spine, lumbar region; M54.16 Radiculopathy, lumbar region; E66.09 Other obesity due to excess calories; Z96.642 Presence of left artificial hip joint; Z87.891 Personal history of nicotine dependence
CPT/HCPCS: 97116-GP; 97161-GP; 97165-GO; 97530-GO; 97535-GO; C1713; J0171; J0690; J1170; J1650; J2250; J2274; J2405; J2704; J3010; J3490; J7060

== ENCOUNTER 2017-01-02 11:55 | Inpatient (IN) | payer OTHER ==
[2017-01-02] MEDS ORDERED: VANCOMYCIN PHARMACY TO DOSE MISC ONE (13:48)
[2017-01-02] MEDS ORDERED: VANCOMYCIN 2 GM in D5W 500 ML IV ONE (14:00)
[2017-01-02] MEDS ORDERED: VANCOMYCIN 2 GM in NS 500 ML IV ONE (14:30)
[2017-01-02 14:39] LABS: % IMMATURE GRANULYOCYTES 2.3 % (0.0-1.1); ABSOLUTE IMMATURE GRANULOCYTES 0.22 10^3/uL (0.00-0.10); ADD DIFF? NO; ADD MORPH? NO; ADD SCAN? NO; ATYPICAL LYMPHOCYTE FLAG 20 (0-99); FRAGMENT RBC FLAG 0 (0-99); HEMOGLOBIN 9.6 g/dL (13.7-17.5); LEFT SHIFT FLG 20 (0-99); LIPEMIA HEMOLYSIS FLAG 90 (0-99); MEAN CELL HEMOGLOBIN 29.1 pg (27.9-34.1); MEAN CELL HEMOGLOBIN CONCENTR. 34.3 g/dL (32.4-36.7); MEAN CELL VOLUME 84.8 fL (81.5-99.8); MEAN PLATELET VOLUME 8.3 fL (8.7-11.7); PLATELET CLUMPS FLAG 0 (0-99); PLATELET COUNT 414 10^3/uL (150-400); RED CELL DISTRIBUTION WIDTH 14.6 % (11.5-15.2)
[2017-01-02 14:56] LABS: ANION GAP 7 mEq/L (8-16); CALCIUM 8.5 mg/dL (8.5-10.4); CARBON DIOXIDE 27 mEq/l (22-31); CHLORIDE 99 mEq/L (97-110); CREATININE 0.9 mg/dL (0.7-1.3); GLOMERULAR FILTRATION RATE > 60; GLUCOSE 84 mg/dL (70-100); POTASSIUM 4.7 mEq/L (3.5-5.2); SODIUM 133 mEq/L (134-144)
[2017-01-02] MEDS ORDERED: POLYETHYLENE GLYCOL 3350 17 GM PKT PO PRN (15:08)
[2017-01-02] MEDS: NS W/ 20 KCl/L 1,000 ML IV SCH (15:19)
[2017-01-02] MEDS: morphINE SR 15 MG TAB PO SCH ×2 (15:26→21:36)
[2017-01-02] MEDS: oxyCODONE IR 15 MG TAB PO PRN ×2 (15:26→21:37)
[2017-01-02] MEDS: DIAZEPAM 5 MG TAB PO PRN ×2 (15:26→21:36)
[2017-01-02 16:03] LABS: SEDIMENTATION RATE 56 MM/HR (0-15)
--- NOTE | 2017-01-02 17:56 | GHP ---
[f rep st] PREOP HISTORY AND PHYSICAL DATE OF ADMISSION: 01/02/2017 CHIEF COMPLAINT: Drainage from incision. HISTORY OF PRESENT ILLNESS: The patient is a 46-year-old male who underwent an L3-S1 fusion by Dr. Delaney cervantes on 12/19/17. He presented to clinic today for followup with persistent drainage from hi s wound. This has been present for approximately the last 6 days. He did have a temperature while a t home with some chills. He was admitted to the hospital for further workup. He currently complains of some back pain. He is not having any radicular leg pain, weakness, paresthesias, bowel/bladder p roblems or ataxia. He has been having chills. He did have a temperature of 100.8 today. PAST MEDICAL HISTORY: None. PAST SURGICAL HISTORY: Includes recent L3-S1 lumbar fusion. MEDICATIONS PRIOR TO ADMISSION: Tylenol, Valium, Robaxin, MS Contin, oxycodone, and MiraLAX. ALLERGIES: No known drug allergies. FAMILY HISTORY: Patient has no family history of spinal problems. SOCIAL HISTORY: Patient is single, but does have grown children. He denies smoking or drinking or d rug use. REVIEW OF SYSTEMS: Negative. PHYSICAL EXAM: GENERAL: Patient is a 46-year-old male lying in bed in no apparent distress. HEAD, EYES, EARS, NOSE, AND THROAT: Negative to drainage. EXTREMITIES: [place], warm and dry. NEUROLOGICAL EXAM: Patient is awake, alert, oriented x4. Pupils equal, round, reactive to light. E xtraocular motions are intact. There is no evidence of facial droop. Tongue and uvula are midline. Spinal accessory muscles are intact. His motor strength is 5/5 in his arms and legs. His sensation is grossly intact to light touch in his arms and legs. Deep tendon reflexes are 1+ out of 4. BACK: His incision is mostly well healed. At the bottom portion of the incision there is a small ar ea of erythema and drainage. IMPRESSION: This is a 46-year-old male who is approximately 2 weeks out from an L3-S1 instrumentatio n and fusion. He is admitted with low-grade temperatures and drainage from his incision. PLAN: All of the above issues discussed in detail with the patient. This patient was also seen and examined by Dr. Parker. At this point in time his white blood cell count is 9.3 and his ESR i s 56 and CRP is 47.6. We are awaiting cultures from the swab that was sent from clinic today. We wi ll at this point in time hold his antibiotics. The patient can have a regular diet. If his cultures glove turner and former automatic to be positive, then we will likely consider incision and drainage of his lumbar wound. Pl ease call with any neurological changes. /[id number]/MODL
[2017-01-02] MEDS: ACETAMINOPHEN 500 MG TAB PO SCH (21:36)
[2017-01-03] MEDS: NS W/ 20 KCl/L 1,000 ML IV SCH ×2 (01:41→15:57)
[2017-01-03] MEDS: DIAZEPAM 5 MG TAB PO PRN ×3 (03:30→16:59)
[2017-01-03] MEDS: oxyCODONE IR 15 MG TAB PO PRN ×3 (03:31→16:59)
[2017-01-03] MEDS: ACETAMINOPHEN 500 MG TAB PO SCH ×3 (05:57→21:55)
--- NOTE | 2017-01-03 07:43 | SOAPPROG ---
SOAP Progress Note Assessment/Plan: Assessment: 46 yo M sp L3-S1 fusion 2 weeks ago with wound leakage Plan: neuro: stable gram + cocci on wound culture esr/crp elevated will make NPO and likely plan for washout please call with neuro changes 01/03/17 07:41 Subjective: minimal back pain, no leg pain, no weakness. Objective: Vital Signs Temp Pulse Resp BP Pulse Ox 36.8 C 64 15 116/63 96 01/03/17 03:39 01/03/17 03:39 01/03/17 03:39 01/03/17 03:39 01/03/17 03:39 Microbiology 01/02/17 18:40 Gram Stain - Final Back - Swab Laboratory Results 01/02/17 14:28 01/02/17 14:28 01/02/17 01/03/17 01/04/17 05:59 05:59 05:59 Intake Total 900 Output Total 1200 Balance -300 AAOx4, +FC PERRL, EOMI, no facial droop 5/5 + light touch drainage from lower portion of incision ICD10 Worksheet Patient Problems: Problems Problem Status Onset Osteoarthritis of left hip Acute
[2017-01-03] MEDS: METHOCARBAMOL 750 MG TAB PO PRN ×3 (07:57→21:42)
[2017-01-03] MEDS: morphINE SR 15 MG TAB PO SCH ×3 (07:57→21:41)
[2017-01-03] MEDS ORDERED: VANCOMYCIN 2 GM in NS 500 ML IV ONE (08:30)
[2017-01-03] MEDS ORDERED: BUPIVACAINE 0.25% 30 ML SDV ONE ×2 (10:27→10:30)
[2017-01-03] MEDS ORDERED: BACITRACIN 50,000 UNITS/10 ML SYR IRR ONE ×3 (10:28→12:31)
[2017-01-03] MEDS ORDERED: CHLORHEXIDINE GLUC HIBICLENS 118 ML BTL TP ONE (10:30)
[2017-01-03] MEDS ORDERED: THROMBIN (BOVINE) 5,000 UNIT VIAL TP ONE (10:31)
[2017-01-03] MEDS ORDERED: MIDAZOLAM 2 MG/2 ML VIAL IVP ONE (11:13)
--- NOTE | 2017-01-03 11:14 | PDANEPAE ---
ANE Past Medical History - Cardiovascular History Hx Hypertension: No Hx Arrhythmias: No Hx Chest Pain: No Hx Coronary Artery / Peripheral Vascular Disease: No Hx CHF / Valvular Disease: No Hx Palpitations: No Cardiovascular History Comment: borderline htn- no medications - Pulmonary History Hx COPD: No Hx Asthma/Reactive Airway Disease: No Hx Recent Upper Respiratory Infection: No Hx Oxygen in Use at Home: No Hx Sleep Apnea: Yes Sleep Apnea Screening Result - Last Documented: Positive - Neurologic History Hx Cerebrovascular Accident: No Hx Seizures: No Hx Dementia: No Neurologic History Comment: hx of back fusion last year - Endocrine History Hx Diabetes: No Hypothyroid: No Hyperthyroid: No Obesity: severe - Renal History Hx Renal Disorders: No - Liver History Hx Hepatic Disorders: No - Neurological & Psychiatric Hx Hx Neurological and Psychiatric Disorders: Yes Neurological / Psychiatric History Comment: 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 Low back pain,radiating down L thigh and back of calf. - Cancer History Hx Cancer: No Cancer History Comment: throat lesions removed 8 yrs ago - Congenital Disorder History Hx Congenital Disorders: No - GI History Hx Gastrointestinal Disorders: No - Other Health History Other Health History: dry skin - Chronic Pain History Chronic Pain: Yes (back and left leg) - Surgical History Prior Surgeries: L total hip 08-29-16. left index finger surgery x2 2015. l4- 5 fusion back surgery x2 2016 ANE Review of Systems Review of Systems: ANE Patient History - Allergies Allergies/Adverse Reactions: No Known Allergies Allergy (Verified 12/05/16 13:51) - Home Medications Home Medications: Diazepam [Valium 5 MG (*)] 5 mg PO Q6HRS PRN 01/02/17 [Last Taken 01/02/17] Methocarbamol [Robaxin 750 mg (*)] 750 mg PO Q6HRS PRN 01/02/17 [Last Taken ] morphINE SR [Ms Contin/Oramorph 15 mg (*)] 15 mg PO TID 01/02/17 [Last Taken ] oxyCODONE IR [Oxycodone Ir (*)] 30 mg PO Q6HRS PRN 01/02/17 [Last Taken 01/02/17 ] - NPO status NPO Since - Liquids (Date): 01/02/17 NPO Since - Liquids (Time): 23:55 NPO Since - Solids (Date): 01/02/17 NPO Since - Solids (Time): 21:00 - Smoking Hx Smoking Status: Former smoker - Family Anes Hx Family Hx Anesthesia Complications: none ANE Labs/Vital Signs - Labs Result Diagrams: 01/02/17 14:28 01/02/17 14:28 - Vital Signs Blood Pressure: 114/68 Heart Rate: 66 Respiratory Rate: 13 O2 Sat (%): 96 Height: 182.88 cm Weight: 132.131 kg ANE Physical Exam - Airway Neck exam: decreased ROM Mallampati Score: Class 3 Mouth exam: poor dentition, moreno - Pulmonary Pulmonary: no respiratory distress - Cardiovascular Cardiovascular: regular rate and rhythym - ASA Status ASA Status: III ANE Anesthesia Plan Anesthesia Plan: general endotracheal anesthesia
[2017-01-03] MEDS ORDERED: fentaNYL 250 MCG/5 ML INJ ONE (11:37)
[2017-01-03] MEDS ORDERED: PROPOFOL/EMULSION 500 MG/50 ML BOTTLE IV ONE (11:38)
[2017-01-03] MEDS ORDERED: VANCOMYCIN 1 GM VIAL ONE ×3 (12:26→12:33)
[2017-01-03] MEDS ORDERED: HYDROCODONE/APAP 5/325 TAB PO PRN (12:31)
[2017-01-03] MEDS ORDERED: LR 500 ML IV PRN (12:31)
[2017-01-03] MEDS ORDERED: LABETALOL HCL 5 MG/ML 20 ML MDV IVP PRN (12:31)
[2017-01-03] MEDS ORDERED: NALOXONE HCL 0.4 MG/ML INJ IVP PRN (12:31)
[2017-01-03] MEDS ORDERED: PROMETHAZINE HCL 25 MG/ML INJ IVP PRN (12:31)
[2017-01-03] MEDS ORDERED: DEXAMETHASONE 4 MG/ML VIAL ONE (12:57)
[2017-01-03] MEDS ORDERED: ONDANSETRON 4 MG/2 ML VIAL ONE (12:57)
[2017-01-03] MEDS ORDERED: BACITRACIN ZINC 14.2 GM OINTTUBE TP ONE (13:11)
--- NOTE | 2017-01-03 13:25 | POSTOPPROG ---
Post Op Note Date of Operation: 01/03/17 Surgeon: Troy Parker Chenille Machine Operator: Tod Singh Anesthesiologist: Aramis Marie Anesthesia: GET(General Endotracheal) Pre-op Diagnosis: LUmbar wound infection Post-op Diagnosis: Same Indication: Persistent drainage from wound Procedure: Lumbar wound I&D Findings: purulent fluid Inf/Abcess present in the surg proc area at time of surgery?: Yes Depth: Deep Incisional (Fascial) EBL: 50-100
[2017-01-03] MEDS ORDERED: fentaNYL 100 MCG/2 ML INJ ONE ×2 (13:38→13:53)
[2017-01-03] MEDS: fentaNYL 100 MCG/2 ML INJ IVP PRN ×4 (13:39→14:32)
--- NOTE | 2017-01-03 14:05 | ASMTCMCOM ---
CM Note CM Note Notes: Pt here for infection post spinal surgery, went to OR today for washout. Dc needs unclear, CM w/f. DC Plan: TBD Date Signed: 01/03/2017 02:05 PM Electronically Signed By:Mary Lou Sauceda RN
[2017-01-03] MEDS ORDERED: HYDROCODONE/APAP 5/325 TAB ONE (14:17)
--- NOTE | 2017-01-03 14:40 | SOAPPROG ---
SOAP Progress Note Assessment/Plan: POST OP CHECK: Assessment: Doing well after lumbar wound I&D. Plan: CPM in PACU. Continue ENRIQUE x 2 to bulb suction Transfer to floor per protocol 01/03/17 14:38 Subjective: awake, alert, grumpy, uncomfortable. Conversant. Objective: Vital Signs Temp Pulse Resp BP Pulse Ox 36.0 C 66 19 112/74 97 01/03/17 13:30 01/03/17 11:14 01/03/17 14:25 01/03/17 14:16 01/03/17 14:20 Microbiology 01/02/17 18:40 Gram Stain - Final Back - Swab Laboratory Results 01/02/17 14:28 01/02/17 14:28 01/02/17 01/03/17 01/04/17 05:59 05:59 05:59 Intake Total 900 Output Total 1200 100 Balance -300 -100 Neuro: WOODALL to command sensation +LT throughout Vitals: BP: 132/92 HR: 82 O2: 95% nasal cannula ICD10 Worksheet Patient Problems: Problems Problem Status Onset Osteoarthritis of left hip Acute
[2017-01-03] MEDS ORDERED: BISACODYL 10 MG SUPP PR PRN (14:44)
[2017-01-03] MEDS ORDERED: ONDANSETRON DISINTEGRATING 4 MG TAB PO PRN (14:44)
[2017-01-03] MEDS ORDERED: LACTULOSE 20 GM/30 ML UDCUP PO PRN (14:44)
[2017-01-03] MEDS ORDERED: diphenhydrAMINE 25 MG CAP PO PRN (14:44)
[2017-01-03] MEDS ORDERED: ONDANSETRON 4 MG/2 ML VIAL IVP PRN (14:44)
[2017-01-03] MEDS ORDERED: LIDOCAINE 1% 5 ML SDV NB ONE (16:00)
[2017-01-03] MEDS: FAMOTIDINE 20 MG TAB PO SCH (21:41)
[2017-01-03] MEDS: SENNOSIDES/DOCUSATE SODIUM TAB PO SCH (21:41)
[2017-01-03] MEDS ORDERED: VANCOMYCIN 1.5 GM in D5W 250 ML IV ONE (23:00)
[2017-01-03] MEDS ORDERED: VANCOMYCIN 1.5 GM in D5W 250 ML IV SCH (23:00)
--- NOTE | 2017-01-04 02:12 | GOP ---
[f rep st] OPERATIVE REPORT DATE OF OPERATION: 01/03/2017 SURGEON: Troy Parker MD NEUROSURGEON: Troy Parker MD SILK SPOTTER: WILTON Tyler NP PREOPERATIVE DIAGNOSIS: Deep postoperative wound infection. POSTOPERATIVE DIAGNOSIS: Deep postoperative wound infection. PROCEDURE PERFORMED: Incision and drainage of complex postoperative wound infection. FINDINGS: ESTIMATED BLOOD LOSS: 100 cc. INDICATIONS: The patient is a 46-year-old obese man who underwent an extensive decompression and mul tilevel fusion with instrumentation a few weeks ago, who came in recently with wound drainage and rec ently fevers. Gram stain yesterday demonstrated gram-positive cocci and he presents now for an incis ion and drainage. DESCRIPTION OF PROCEDURE: After informed consent was obtained, the patient was taken to the operatin g room and placed in the prone position on the Oscar frame. The thoracolumbosacral areas were prepp ed and draped in a sterile fashion and the prior incision was carefully opened and carried down to th e fascial layer, where there was a definite pocket of fluid consistent with infection. This was copi ously irrigated out and scraped free of any tissue. This was carried through the fascia and sim ilarly the wound was extensively debrided and washed out with 3 L of antibiotic irrigation. Vancomyc in powder was placed in the wound and 2 subfascial drains placed. The wound was closed in a layered fashion using interrupted Vicryl sutures along with more vancomycin powder in the subcutaneous level followed by lloyd in the skin. COMPLICATIONS: None. DISPOSITION: The patient was extubated and transferred to the recovery room in stable condition. /[id number]/MODL
[2017-01-04] MEDS: DIAZEPAM 5 MG TAB PO PRN ×2 (03:23→21:48)
[2017-01-04] MEDS: oxyCODONE IR 15 MG TAB PO PRN ×2 (03:23→21:48)
[2017-01-04] MEDS: ACETAMINOPHEN 500 MG TAB PO SCH ×3 (03:42→21:47)
[2017-01-04 05:21] LABS: % IMMATURE GRANULYOCYTES 0.7 % (0.0-1.1); ABSOLUTE IMMATURE GRANULOCYTES 0.07 10^3/uL (0.00-0.10); ADD DIFF? NO; ADD MORPH? NO; ADD SCAN? NO; ATYPICAL LYMPHOCYTE FLAG 0 (0-99); FRAGMENT RBC FLAG 0 (0-99); HEMATOCRIT 30.7 % (40.0-51.0); LEFT SHIFT FLG 0 (0-99); LIPEMIA HEMOLYSIS FLAG 80 (0-99); MEAN CELL HEMOGLOBIN 27.6 pg (27.9-34.1); MEAN CELL HEMOGLOBIN CONCENTR. 32.6 g/dL (32.4-36.7); MEAN CELL VOLUME 84.8 fL (81.5-99.8); MEAN PLATELET VOLUME 8.3 fL (8.7-11.7); PLATELET CLUMPS FLAG 0 (0-99); PLATELET COUNT 446 10^3/uL (150-400); RED BLOOD CELL COUNT 3.62 10^6/uL (4.40-6.38); RED CELL DISTRIBUTION WIDTH 14.1 % (11.5-15.2)
[2017-01-04 05:41] LABS: ANION GAP 8 mEq/L (8-16); CALCIUM 8.5 mg/dL (8.5-10.4); CARBON DIOXIDE 27 mEq/l (22-31); CHLORIDE 105 mEq/L (97-110); CREATININE 0.7 mg/dL (0.7-1.3); GLOMERULAR FILTRATION RATE > 60; GLUCOSE 128 mg/dL (70-100); POTASSIUM 5.1 mEq/L (3.5-5.2); SODIUM 140 mEq/L (134-144)
--- NOTE | 2017-01-04 05:59 | GCON ---
[f rep st] CONSULTATION INFECTIOUS DISEASE CONSULTATION REFERRING PHYSICIAN: WILTON Cornell REASON FOR REFERRAL: Lumbar spinal hardware surgical site infection. HISTORY OF PRESENT ILLNESS: Patient is a 46-year-old male who was admitted to [facility] on 01/02/2017 secondary to drainage from his lumbar incision. The patient underwent a revision L3 through S1 fusion by Dr. Ulices Velasco on 12/19/2016. [facility] with persistent drainage from his wound. The patient relates that happened for t he previous 6 days. The patient also had subjective chills and fever at home. He had some back pain , but the radicular leg pain that he had prior to the revision surgeries is gone. The patient was ad mitted on 01/02, and swabs were taken from the drainage of his wound. Antibiotics were held in prepa ration for washout and deep tissue samples earlier today. Patient went to surgery this morning. In surgery, adali purulence was found. Samples were taken. The patient had his hardware washed thoroug hly and was started on IV vancomycin 1.5 g q.12 hours. Currently, he is resting comfortably in his h ospital bed. No particular complaints. PAST MEDICAL HISTORY: None. PAST SURGICAL HISTORY: Status post multiple lumbosacral fusions and revisions. ANTIBIOTICS: Vancomycin. ALLERGIES: No known drug allergies. SOCIAL HISTORY: The patient works as a fabricator and machinist apprentice. He has multiple children. No sign ificant tobacco, alcohol, or drug use noted. FAMILY HISTORY: Reviewed, noncontributory. REVIEW OF SYSTEMS: Other than that detailed above in the History of Present Illness, comprehensive 1 0-system review is negative. PHYSICAL EXAMINATION: VITAL SIGNS: Temperature maximum 37.0, temperature current 36.7, heart rate 7 5, respiratory rate is 16, blood pressure is 131/101. GENERAL: The patient is a well-formed, obese middle-aged male in no acute distress. He is not toxic in appearance. He is alert and oriented x3. He is pleasant in demeanor. HEENT: Normocephalic for age. Atraumatic. No scleral icterus. No or al lesion or drainage from the nares. Eyes: Lids and conjunctivae are within normal limits. Pupils are equal and round bilaterally. NECK : Supple. No meningismus. LUNGS: Clear to auscultation bilaterally. Good effort. HEART: Regula r rate and rhythm. No significant peripheral edema. SKIN: Warm and dry to the touch. No rash or l esion noted. The patient has a lumbosacral back incision with drains intact. Serosanguineous draina ge from the drains are collecting. Significant amounts of drainage is seen. MUSCULOSKELETAL: No ot her muscle belly tenderness is noted. No joint line effusion or arthritis is seen. NEURO: Cranial nerves 2-12 seem to be intact. Peripheral sensation seems intact in extremities. LABORATORY DATA: Patient has a CBC dated 01/02/2017 shows a white blood cell count of 9.4, hemoglobi n of 9.6, hematocrit of 28.0, and a platelet count of 414. Differential is within normal limits. Se rum chemistries on 01/02/2017 show sodium of 133, potassium is 4.7, chloride of 99, bicarbonate of 27 , BUN of 13, creatinine of 0.9. MICROBIOLOGIC DATA: The patient has a back swab dated 01/02/2017 which is growing Staphylococcus aur eus. Blood cultures on 01/02/2017 are no growth to date. Patient has multiple back surgical culture s from 01/03/2017 which gram stains are showing 4+ polymorphonuclear white cells and 1+ gram-positive cocci. In at least one of these samples, the cocci were felt likely in chains. ASSESSMENT: Postoperative infection of the lumbosacral spine. Patient has hardware throughout. Alverto martin is unable to be removed from a stability standpoint. The objective, at this point, is to wash out as much of the infection is possible surgically and then cover broadly for likely pathogens. Sta ph aureus is clearly one of the pathogens, although if there are gram-positive cocci in chains, he ma y have both staph and streptococcus in this area. Enterococcus is also another possibility for the g tamra-positive cocci in chains. Vancomycin is a reasonable monotherapy at this point. We will have an swers from culture, as well as sensitivities within the next 24-48 hours. Discussed with the patient that this will likely need 8 weeks of antibiotics after the washout earlier today. Then transition over to an oral suppressive agent in order to try to prevent any residual bacteria that are still on the hardware from the knee up to the margin of the tissues and cause inflammation. Patient voices un derstanding of this plan. PLAN: 1. Continue vancomycin of 1.5 g q.12 hours for now. 2. Follow up on culture and sensitivity data. 3. Plan outpatient IV antibiotics once pathogens are completely known and antibiotic regimen is stephanie danielle /[id number]/MODL
--- NOTE | 2017-01-04 07:29 | SOAPPROG ---
SOAP Progress Note Assessment/Plan: Assessment: 46 yo M sp L3-S1 fusion 2 weeks ago with wound leakage Plan: neuro: stable and doing well overall MSSA on wound culture, blood cultures negative so far, on vanco for now per ID, PICC when cleared by ID PT/OT scd/corinne/lovenox for DVT prophylaxis ENRIQUE x2, will keep in until output is minimal will need HHC and IV antibiotics please call with neuro changes discussed with DR Baltazar 01/03/17 07:41 01/04/17 07:27 Subjective: back pain improving, no leg pain, no weakness. Objective: Vital Signs Temp Pulse Resp BP Pulse Ox 36.4 C 70 14 110/62 92 01/03/17 23:51 01/03/17 23:51 01/03/17 23:51 01/03/17 23:51 01/03/17 23:51 Microbiology 01/03/17 12:20 Gram Stain - Final Back - Aspirate 01/03/17 12:20 Gram Stain - Final Back - Eswab 01/03/17 12:20 Gram Stain - Final Back - Eswab 01/02/17 18:40 Gram Stain - Final Back - Swab Laboratory Results 01/04/17 05:00 01/04/17 04:35 01/03/17 01/04/17 01/05/17 05:59 05:59 05:59 Intake Total 900 2950 Output Total 1200 4000 Balance -300 -1050 AAOX4, +FC PERRL, EOMI, no facial droop 5/5 + light touch C/D/I ICD10 Worksheet Patient Problems: Problems Problem Status Onset Osteoarthritis of left hip Acute
[2017-01-04] MEDS: SENNOSIDES/DOCUSATE SODIUM TAB PO SCH ×2 (08:34→21:47)
[2017-01-04] MEDS: morphINE SR 15 MG TAB PO SCH ×3 (08:34→21:47)
[2017-01-04] MEDS: ENOXAPARIN 40 MG/0.4 ML SYR SC SCH (08:34)
[2017-01-04] MEDS: FAMOTIDINE 20 MG TAB PO SCH ×2 (08:34→21:48)
[2017-01-04] MEDS: MAGNESIUM HYDROXIDE 30 ML UDCUP PO PRN (08:52)
[2017-01-04] MEDS ORDERED: ALTEPLASE 2 MG VIAL IVP PRN (10:42)
--- NOTE | 2017-01-04 10:45 | PCMIDPN ---
Assessment/Plan: Assessment: Lumbar spine surgical site infection complicated by hardware. Patient is status post washout with hardware retention. Methicillin sensitive Staph aureus from the initial culture of draining fluid. Deep cultures revealed Enterococcus. Initially changed from vancomycin to cefazolin however changing back to vancomycin now that enterococcus is part of the picture. Await sensitivities on the enterococcus. Will place PICC line in anticipation of discharge on home IV antibiotics x8 weeks. Hopefully the enterococcal isolate will be sensitive to penicillin. This will give good oral options for suppression. Plan: 1. Continue IV vancomycin. 2. Follow clinical course. 3. Follow up on enterococcal sensitivities. 01/04/17 18:17 Subjective: Patient is resting in his hospital bed. In good spirits. Wants to go home. Objective: Vancomycin # 2 Vital Signs Temp Pulse Resp BP Pulse Ox 36.7 C 90 18 124/73 H 94 01/04/17 08:00 01/04/17 08:00 01/04/17 08:00 01/04/17 08:00 01/04/17 08:00 Microbiology 01/02/17 18:40 Gram Stain - Final Back - Swab 01/03/17 12:20 Gram Stain - Final Back - Aspirate 01/03/17 12:20 Gram Stain - Final Back - Eswab 01/03/17 12:20 Gram Stain - Final Back - Eswab Laboratory Results 01/04/17 05:00 01/04/17 04:35 01/03/17 01/04/17 01/05/17 05:59 05:59 05:59 Intake Total 900 2950 Output Total 1200 4000 Balance -300 -1050 ESR 56 MM/HR (0-15) H 01/02/17 14:28 C-Reactive Protein 47.6 mg/L (<10.0) H 01/02/17 14:28 - Physical Exam General Appearance: WD/WN, alert, no apparent distress, non-toxic Respiratory: lungs clear, normal breath sounds, No respiratory distress Cardiac/Chest: regular rate, rhythm, No tachycardia Back: other (Lumbar incision with drain in place.), No normal inspection Skin: normal color, warm/dry, No rash Neuro/Psych: alert, normal mood/affect, oriented x 3 ICD10 Worksheet Patient Problems: Problems Problem Status Onset Osteoarthritis of left hip Acute
[2017-01-04] MEDS: VANCOMYCIN 1.5 GM in D5W 250 ML IV SCH ×2 (12:24→22:35)
[2017-01-04] MEDS ORDERED: ceFAZolin 2 GM/DEXTROSE 100 ML IV SCH (14:00)
[2017-01-04] MEDS: NS W/ 20 KCl/L 1,000 ML IV SCH (22:35)
[2017-01-05] MEDS: METHOCARBAMOL 750 MG TAB PO PRN (02:09)
[2017-01-05] MEDS: oxyCODONE IR 15 MG TAB PO PRN ×2 (05:20→11:24)
[2017-01-05] MEDS: ACETAMINOPHEN 500 MG TAB PO SCH ×2 (05:20→14:10)
--- NOTE | 2017-01-05 07:55 | SOAPPROG ---
SOAP Progress Note Assessment/Plan: : Assessment: POD #2 sp lumbar wound I &D ongoing back pain neuro stable/intact ENRIQUE x 2 productive Plan: PT/OT today Incentive spirometer q1 hr while awake encourage OOB Change dressing this AM Continue ENRIQUE x 2 utnil output is minimal IV ABX per ID. Currently on vanco, awaiting Enterococcus sensitivities 01/05/17 07:57 Subjective: awake, alert, complains of back pain. Denies numbness tingling or weakness. No leg pain. Objective: Vital Signs Temp Pulse Resp BP Pulse Ox 36.9 C 70 18 114/77 93 01/05/17 07:16 01/05/17 07:16 01/05/17 07:16 01/05/17 07:16 01/05/17 07:16 Microbiology 01/03/17 12:20 Gram Stain - Final Back - Aspirate 01/03/17 12:20 Gram Stain - Final Back - Eswab 01/03/17 12:20 Gram Stain - Final Back - Eswab 01/02/17 18:40 Gram Stain - Final Back - Swab Wound Culture - Final Staphylococcus Aureus 01/03/17 12:20 Mycobacterial Smear (SARA) - Final Back - Aspirate Laboratory Results 01/04/17 05:00 01/04/17 04:35 01/04/17 01/05/17 01/06/17 05:59 05:59 05:59 Intake Total 2950 2004 300 Output Total 4000 815 400 Balance -1050 1189 -100 Neuro: WOODALL to command sens +LT throughout Incision: CDI. Will change dressing today ENRIQUE 1: 60ml ENRIQUE 2: 50ml ICD10 Worksheet Patient Problems: Problems Problem Status Onset Osteoarthritis of left hip Acute
[2017-01-05] MEDS: SENNOSIDES/DOCUSATE SODIUM TAB PO SCH (08:40)
[2017-01-05] MEDS: FAMOTIDINE 20 MG TAB PO SCH (08:40)
[2017-01-05] MEDS: morphINE SR 15 MG TAB PO SCH ×2 (08:40→16:14)
[2017-01-05] MEDS: ENOXAPARIN 40 MG/0.4 ML SYR SC SCH (08:41)
[2017-01-05] MEDS: MAGNESIUM HYDROXIDE 30 ML UDCUP PO PRN (11:24)
[2017-01-05] MEDS: VANCOMYCIN 1.5 GM in D5W 250 ML IV SCH (12:28)
--- NOTE | 2017-01-05 15:15 | PCMIDPN ---
Assessment/Plan: Assessment/Plan: * Postoperative back infection due to Enterococcus faecalis and MSSA: Enterococcus susceptibility pending although suspect will be beta-lactam susceptible as resistance is less common with faecalis species. Will change vancomycin to daptomycin once daily for daily outpatient administration. Beta- lactam use complicated by frequency of administration. Discussed side effect profile including myositis and hypersensitivity pneumonitis with patient. Will obtain baseline CPK. Interagency form completed for outpatient antibiotics and have reviewed with case management. Follow-up with Dr. Quintanilla in our office after discharge. 01/05/17 15:12 01/05/17 15:17 Subjective: Patient wants to go home. Frustrated with being here in states he can take care of himself at home and is able to get around. Objective: Vital Signs Temp Pulse Resp BP Pulse Ox 36.9 C 70 18 114/77 93 01/05/17 07:16 01/05/17 07:16 01/05/17 07:16 01/05/17 07:16 01/05/17 07:16 Microbiology 01/03/17 12:20 Gram Stain - Final Back - Aspirate 01/03/17 12:20 Gram Stain - Final Back - Eswab 01/03/17 12:20 Gram Stain - Final Back - Eswab 01/02/17 18:40 Gram Stain - Final Back - Swab Wound Culture - Final Staphylococcus Aureus 01/03/17 12:20 Mycobacterial Smear (SARA) - Final Back - Aspirate Laboratory Results 01/04/17 05:00 01/04/17 04:35 01/04/17 01/05/17 01/06/17 05:59 05:59 05:59 Intake Total 2950 2004 300 Output Total 4000 815 400 Balance -1050 1189 -100 ESR 56 MM/HR (0-15) H 01/02/17 14:28 C-Reactive Protein 47.6 mg/L (<10.0) H 01/02/17 14:28 Vancomycin # 3 Back cultures growth of MSSA/Enterococcus faecalis Blood cultures no growth Laboratory Tests 01/05/17 11:15 Vancomycin Trough 9.8 - Physical Exam General Appearance: alert, no apparent distress EENT: No thrush Respiratory: lungs clear, No respiratory distress Cardiac/Chest: regular rate, rhythm, No systolic murmur Back: other (Incision intact with no erythema or drainage; ENRIQUE x2 with serosanguineous drainage) ICD10 Worksheet Patient Problems: Problems Problem Status Onset Osteoarthritis of left hip Acute
--- NOTE | 2017-01-05 15:20 | PDIAF ---
- Diagnosis Diagnosis: Postoperative Back infection Code Status: Full Code - Medication Management Discharge Medications: Medications to Continue on Transfer Acetaminophen [Tylenol ES 500 mg (*)] 1,000 mg PO Q8HRS tab 12/22/16 [Last Taken Unknown] Polyethylene Glycol 3350 [Miralax 17 gm (*)] 17 gm PO DAILY PRN pkt 12/22/16 [ Last Taken 01/02/17] Diazepam [Valium 5 MG (*)] 5 mg PO Q6HRS PRN 01/02/17 [Last Taken 01/02/17] Methocarbamol [Robaxin 750 mg (*)] 750 mg PO Q6HRS PRN 01/02/17 [Last Taken ] morphINE SR [Ms Contin/Oramorph 15 mg (*)] 15 mg PO TID 01/02/17 [Last Taken ] oxyCODONE IR [Oxycodone Ir (*)] 30 mg PO Q6HRS PRN 01/02/17 [Last Taken 01/02/17 ] Prison Antibiotics: Daptomycin 800 mg IV q.12 hours Prison Antibiotic Stop Date: 02/26/17 Discharge Medications: Refer to the Discharge Home Medication list for PRN reason. PICC Care - Routine: Yes - Orders Services needed: Home [facility] Care Face to Face: I certify that this patient was under my care and that I had the required [id number] encounter meeting the encounter requirements on the discharge day. My findings support the fact that the patient is homebound as defined in Home Care Face to Face Continued: CMS Chapter 7 Medicare Benefits Manual 30.1.1 , The condition of the patient is such that there exists a normal inability to leave home and consequently, leaving home would require a considerable and taxing effort. - Labs/Radiology CBC w/diff Date: 01/08/17 (Weekly Q Sunday) CMP Date: 01/08/17 (Weekly Q Sunday) CRP Date: 01/08/17 (Weekly Q Sunday) CPK Date: 01/08/17 (Weekly Q Sunday) Call or Fax Lab and Imaging Results to: Dr. Quintanilla [phone] - Follow Up Care Current Providers and Referrals: DAMIR GARCIA [Other] Art Quintanilla MD [Medical Doctor] - 01/11/17 1:00 pm
[2017-01-05] MEDS ORDERED: DAPTOmycin 800 MG in NS 100 ML IV SCH (15:30)
--- NOTE | 2017-01-05 16:24 | PDIAF ---
- Diagnosis Diagnosis: Postoperative Back infection Code Status: Full Code - Medication Management Discharge Medications: Medications to Continue on Transfer Acetaminophen [Tylenol ES 500 mg (*)] 1,000 mg PO Q8HRS tab 12/22/16 [Last Taken Unknown] Polyethylene Glycol 3350 [Miralax 17 gm (*)] 17 gm PO DAILY PRN pkt 12/22/16 [ Last Taken 01/02/17] Diazepam [Valium 5 MG (*)] 5 mg PO Q6HRS PRN 01/02/17 [Last Taken 01/02/17] Methocarbamol [Robaxin 750 mg (*)] 750 mg PO Q6HRS PRN 01/02/17 [Last Taken ] morphINE SR [Ms Contin/Oramorph 15 mg (*)] 15 mg PO TID 01/02/17 [Last Taken ] oxyCODONE IR [Oxycodone Ir (*)] 30 mg PO Q6HRS PRN 01/02/17 [Last Taken 01/02/17 ] [facility] Antibiotics: Daptomycin 800 mg IV q.24 hours [facility] Antibiotic Stop Date: 02/26/17 Discharge Medications: Refer to the Discharge Home Medication list for PRN reason. PICC Care - Routine: Yes - Orders Services needed: Home Prison Care Face to Face: I certify that this patient was under my care and that I had the required [id number] encounter meeting the encounter requirements on the discharge day. My findings support the fact that the patient is homebound as defined in Home Care Face to Face Continued: CMS Chapter 7 Medicare Benefits Manual 30.1.1 , The condition of the patient is such that there exists a normal inability to leave home and consequently, leaving home would require a considerable and taxing effort. - Labs/Radiology CBC w/diff Date: 01/08/17 (Weekly Q Sunday) CMP Date: 01/08/17 (Weekly Q Sunday) CRP Date: 01/08/17 (Weekly Q Sunday) CPK Date: 01/08/17 (Weekly Q Sunday) Call or Fax Lab and Imaging Results to: Dr. Quintanilla [phone] - Follow Up Care Current Providers and Referrals: DAMIR GARCIA [Other] Art Quintanilla MD [Medical Doctor] - 01/11/17 1:00 pm
--- NOTE | 2017-01-05 16:55 | ASMTCMCOM ---
CM Note CM Note Notes: Pt will likely d/c this evening. Pt currently on dapto 800 mg IV Q24, pt is having 1st dose of dapto at [facility] so will not need next does until tomorrow. [facility] will provide RN and antibiotics. Lynn met w pt today and pt is 100% covered. Orders sent in [employer]. Date Signed: 01/05/2017 04:55 PM Electronically Signed By:YOSI Day
[2017-01-05 17:03] VITALS: BP 115/76; PULSE 75; RESP 16; TEMP 98.6; O2SAT 96
[2017-01-05 19:40] LABS: ALANINE AMINOTRANSFERASE 37 IU/L (21-72); ALBUMIN 2.6 g/dL (3.5-5.0); ALKALINE PHOSPHATASE 99 IU/L (38-126); ASPARTATE AMINOTRANSFERASE 16 IU/L (17-59); TOTAL PROTEIN 5.1 g/dL (6.3-8.2)
[2017-01-05 20:23] LABS: BILIRUBIN,TOTAL < 0.1 mg/dL (0.1-1.4); BILIRUBIN-CONJUGATED 0.1 mg/dL (0.0-0.5)
== END 2017-01-05 20:06 | disposition home health service (06) | DRG 858 ==
LOC: F3N 12:55 → OBSVTOIN 12:55
PROVIDERS: ADMIT Neurological Surgery; ATTEND Neurological Surgery
PROC: 0JB70ZZ Excision of Back Subcutaneous Tissue and Fascia, Open Approach (ICD-10-PCS; principal; 2017-01-03 11:30)
PROC: 02HV33Z Insertion of Infusion Device into Superior Vena Cava, Percutaneous Approach (ICD-10-PCS; 2017-01-04)
DX: T81.4XXA Infection following a procedure, initial encounter (principal); B95.61 Methicillin susceptible Staphylococcus aureus infection as the cause of diseases classified elsewhere; B95.2 Enterococcus as the cause of diseases classified elsewhere; Z98.1 Arthrodesis status; F32.9 Major depressive disorder, single episode, unspecified; Z96.642 Presence of left artificial hip joint; Z87.891 Personal history of nicotine dependence
CPT/HCPCS: 97161-GP; C1751; J0171; J0878; J1100; J1650; J2250; J2405; J2704; J3010; J3370

== ENCOUNTER → 2017-06-20 | Outpatient (CLI) | payer OTHER | LOC: FIMAGING 16:36 | PROVIDERS: ATTEND Physician Assistant Surgical | DX: M54.5 Low back pain (principal); M25.552 Pain in left hip; Z98.1 Arthrodesis status; Z96.652 Presence of left artificial knee joint ==